=== PATIENT | female | born 1995 | race Caucasian/White ===

== ENCOUNTER 2021-10-04 15:04 | Emergency (ER) | payer MEDICAID, SELFPAY ==
[2021-10-04 15:05] VITALS: BP 107/72; PULSE 103; RESP 18; TEMP 37.8; O2SAT 98; BMI 33.4
[2021-10-04 15:16] VITALS: BMI 33.4
[2021-10-04 15:26] LABS: Influenza A, PCR Not Detected (NotDetected); Influenza B, PCR Not Detected (NotDetected)
[2021-10-04 15:51] LABS: Coronavirus 19, PCR Detected (NotDetected)
[2021-10-04 16:00] VITALS: BP 104/60; PULSE 86; RESP 18; O2SAT 98
--- NOTE | 2021-10-04 16:12 | PC.NURSE ---
PT NOTIFIED OF COVID RESULTS
[2021-10-04 16:15] VITALS: BP 104/60; PULSE 88; RESP 18; O2SAT 100
--- NOTE | 2021-10-04 16:18 | PC.NURSE ---
MD AT BEDSIDE GOING OVER RESULTS
--- NOTE | 2021-10-04 16:21 | HMH.EDGENADL ---
ED Disposition Clinical Impression: COVID-19 Clinical Impression: (Ruled Out): Acute myocardial infarction Disposition: Home, Self-Care Condition on Discharge: Good Instructions: DI for COVID-19 (Suspected or Confirmed ) Additional Instructions: Rest and drink plenty of fluids. Tylenol as needed for aches and chills. Return for shortness of breath, chest pain or other concerns. Referrals: Rochelle Peng [Primary Care Provider] - Forms: Work/School Release - Critical Care Critical Care Time: No Attestation: On 10/04/21, the high probability of a clinically significant, sudden or life threatening deterioration of the following system(s) required my full and direct attention, intervention and personal management. The time I documented below is in addition to time spent performing reported procedures but includes the following listed in this critical care notation. Medical Decision Making - Jayson Inquiry Pt receiving controlled substance: No Vital Signs: 10/04/21 15:05 10/04/21 16:00 10/04/21 16:15 Temperature 100.1 F H Temperature Source Oral Pulse Rate 86 88 Pulse Rate [Radial] 103 H Respiratory Rate 18 18 18 Blood Pressure 104/60 L 104/60 L Blood Pressure [Right Arm] 107/72 L Blood Pressure Mean 74 Blood Pressure Mean [Right Arm] 83 Blood Pressure Position [Right Arm] Sitting 02 Sat by Pulse Oximetry 98 98 100 Oxygen Delivery Method Room Air - Lab Data Lab Results 10/04/21 15:15: SARS-CoV-2 (PCR) Detected A, Influenza A Untype (PCR) Not detected, Influenza Type B (PCR) Not detected General Adult HPI - General Chief complaint: Weakness Stated complaint: cough,vomiting,HD and body aches Time Seen by Provider: 10/04/21 16:21 Mode of Arrival: Ambulatory Source of Information: Patient Limitations: No Limitations Description of Symptoms (Recalled from ER Triage Doc. by RN): to ed per pvt car with c/o chills, headache, bodyaches, nausea, epigastric pain starting yesterday at 4pm. pt denies any sick contacts. - History of Present Illness HPI narrative: Pt. w/cough and aches that began yesterday. Denies soa or cp. sxs described as mild to moderate and w/o exacerbating sxs. - Related Data Allergies Allergy/AdvReac Type Severity Reaction Status Date / Time No Known Allergies Allergy Verified 10/04/21 15:17 [facility] History - Hepatitis A Screen Drug use history?: No Attestation statement:: This patient has been screened for Hepatitis A risk factors. - Social History Smoking Status: Current every day smoker ROS Obtained: Yes All systems reviewed & no additional complaints - Constitutional Constitutional: Reports system reviewed and no additional complaints, except as docu - Cardiovascular Cardiovascular: Reports system reviewed and no additional complaints, except as docu, Denies chest pain - Respiratory Respiratory: Reports system reviewed and no additional complaints, except as docu, Denies shortness of breath, Denies dyspnea Physical Exam - General General appearance: alert - Head Head exam: atraumatic - Eye Eye exam: Present: normal appearance - ENT ENT exam: Present: normal exam - Chest Chest inspection: Present: normal inspection - Respiratory Respiratory exam: Present: normal lung sounds bilaterally - Cardiovascular Cardiovascular exam: Present: regular rate - Extremities Exam Extremities exam: Present: normal inspection - Neurological Exam Neurological exam: Present: alert, oriented X3
[2021-10-04 16:27] VITALS: BP 127/65; PULSE 95; RESP 16; TEMP 37.2; O2SAT 98
== END 2021-10-04 16:28 | disposition home or self-care (01) ==
PROVIDERS: Emergency Provider Emergency Medicine; PCP Nurse Practitioner Family
DX: U07.1 COVID-19 (principal)
CPT/HCPCS: 99282; C9803; U0003; U0005

== ENCOUNTER → 2022-08-03 14:33 | Outpatient (CLI) | payer MEDICAID, SELFPAY ==
[2022-08-03 15:35] VITALS: BMI 39.6
== END ==
PROVIDERS: PCP Nurse Practitioner Family; Visit Provider Nurse Practitioner Family
DX: E66.9 Obesity, unspecified (principal); Z68.39 Body mass index [BMI] 39.0-39.9, adult; Z71.3 Dietary counseling and surveillance
CPT/HCPCS: 97802